=== PATIENT | male | born 1950 | race Caucasian/White ===

== ENCOUNTER 2017-07-30 05:39 | Inpatient (IN) ==
[2017-07-30] MEDS ORDERED: VANCOMYCIN INJ 1,000 MG in SODIUM CHLORIDE 0.9% 250 ML IV ONE (06:00)
[2017-07-30] MEDS ORDERED: SODIUM CHLORIDE 0.9% IV ONE (06:00)
[2017-07-30] MEDS ORDERED: VANCOMYCIN 1,000 MG VIAL ONE (06:00)
[2017-07-30] MEDS ORDERED: CEFAZOLIN IV ONE (06:00)
[2017-07-30] MEDS ORDERED: ceFAZolin 1,000 MG VIAL ONE (06:01)
[2017-07-30] MEDS ORDERED: FAMOTIDINE 20 MG TABLET PO ONE (06:02)
[2017-07-30] MEDS ORDERED: DIAZEPAM 5 MG TABLET PO ONE (06:02)
[2017-07-30] MEDS ORDERED: FAMOTIDINE 20 MG TABLET ONE (06:22)
[2017-07-30] MEDS ORDERED: DIAZEPAM 5 MG TABLET ONE (06:22)
[2017-07-30] MEDS: LACTATED RINGERS 1,000 ML IV SCH ×3 (06:29→22:33)
[2017-07-30] MEDS ORDERED: TRANEXAMIC ACID 1,000 MG/10 ML VIAL IV ONE ×2 (06:38→06:45)
[2017-07-30] MEDS ORDERED: BACITRACIN OINT 0.9 GM PACK TOP ONE (06:38)
[2017-07-30] MEDS ORDERED: PROPOFOL 1,000 MG/100 ML BOTTLE IV ONE (06:43)
[2017-07-30] MEDS ORDERED: ONDANSETRON 4 MG/2 ML VIAL IV PRN (09:23)
[2017-07-30] MEDS ORDERED: diphenhydrAMINE CAP 25 MG CAPSULE PO PRN (09:23)
[2017-07-30] MEDS ORDERED: oxyCODONE IR 5 MG TABLET PO PRN (09:23)
[2017-07-30] MEDS ORDERED: ROPIVACAINE 0.5% 30 ML VIAL ONE (09:31)
[2017-07-30] MEDS ORDERED: EPINEPHrine 1 MG/ML VIAL ONE (09:42)
[2017-07-30] MEDS ORDERED: ACETAMINOPHEN 1,000 MG/100 ML VIAL IV ONE (09:42)
[2017-07-30] MEDS ORDERED: MIDAZOLAM 2 MG/2 ML VIAL ONE ×2 (09:42→12:35)
[2017-07-30] MEDS ORDERED: fentaNYL 100 MCG/2 ML VIAL ONE (09:42)
[2017-07-30] MEDS ORDERED: SODIUM CHLORIDE 0.9% 100 ML IV ONE (09:43)
[2017-07-30] MEDS ORDERED: LACTATED RINGERS 1,000 ML IV ONE (09:43)
[2017-07-30] MEDS ORDERED: KETAMINE 500 MG/10 ML VIAL ONE (09:45)
[2017-07-30] MEDS: KETOROLAC 30 MG/1 ML VIAL IV SCH ×3 (10:47→21:15)
[2017-07-30 12:14] LABS: Basophils % 0.3 % (0.0-0.8); Eosinophils # 0.2 10*3/uL (0.0-0.87); Eosinophils % 1.2 % (0.00-10.9); Hematocrit 39.1 VOL% (42.0-52.0); Hemoglobin 13.4 GM/DL (14.0-18.0); Immature Granulocytes % 1.5 %; Immature Granulocytes Absolute 0.22 #; Lymphocytes # 1.9 10*3/uL (1.4-4.0); Lymphocytes % 12.9 % (21.2-54.2); Mean Corpuscular HGB Conc 34.3 GM/DL (32-36); Mean Corpuscular Hemoglobin 33 PG (27-34); Mean Corpuscular Volume 95.6 FL (87-102); Mean Platelet Volume 9.1 FL (9.6-12.0); Monocytes # 1.1 10*3/uL (0.11-0.8); Monocytes % 7.9 % (1.7-12.7); Neutrophils # 10.9 10*3/uL (1.4-7.4); Neutrophils % 76.2 % (38.7-73.9); Platelet Count 302 T/CUMM (130-400); Red Blood Count 4.09 MC/CUMM (3.8-5.5); Red Cell Distribution Width 12.6 % (9.3-17.3); White Blood Count 14.3 T/CUMM (4-12)
[2017-07-30 12:50] LABS: Calcium 8.7 MG/DL (8.5-10.1); Osmolality,Calculated 284.1 MOS/KG (273-304); Potassium 4.1 MMOL/L (3.5-5.1)
[2017-07-30] MEDS: ceFAZolin 2,000 MG in PREMIX 1 EACH IV SCH ×2 (13:27→20:25)
[2017-07-30] MEDS: ACETAMINOPHEN 500 MG TABLET PO SCH ×2 (13:27→20:25)
[2017-07-30] MEDS: oxyCODONE IR 5 MG TABLET PO PRN (13:49)
[2017-07-30] MEDS: MORPHINE 10 MG/1 ML VIAL IV PRN ×3 (15:12→23:06)
[2017-07-30] MEDS: DOCUSATE SODIUM 100 MG CAPSULE PO SCH (20:25)
[2017-07-31] MEDS: LACTATED RINGERS 1,000 ML IV SCH ×2 (00:34→05:54)
[2017-07-31] MEDS: ACETAMINOPHEN 500 MG TABLET PO SCH ×2 (00:34→09:19)
[2017-07-31] MEDS: KETOROLAC 30 MG/1 ML VIAL IV SCH (03:42)
[2017-07-31] MEDS ORDERED: KETOROLAC 30 MG/1 ML VIAL ONE (05:37)
[2017-07-31] MEDS: MORPHINE 10 MG/1 ML VIAL IV PRN ×5 (05:54→19:32)
[2017-07-31] MEDS: FONDAPARINUX 2.5 MG/0.5 ML SYRINGE SUBCUT SCH (05:54)
[2017-07-31 06:33] LABS: Basophils % 0.3 % (0.0-0.8); Eosinophils # 0.2 10*3/uL (0.0-0.87); Eosinophils % 1.5 % (0.00-10.9); Hematocrit 33.7 VOL% (42.0-52.0); Hemoglobin 11.9 GM/DL (14.0-18.0); Immature Granulocytes % 0.5 %; Immature Granulocytes Absolute 0.05 #; Lymphocytes % 9.1 % (21.2-54.2); Mean Corpuscular HGB Conc 35.3 GM/DL (32-36); Mean Corpuscular Hemoglobin 33 PG (27-34); Mean Corpuscular Volume 93.4 FL (87-102); Mean Platelet Volume 9.3 FL (9.6-12.0); Monocytes # 1.3 10*3/uL (0.11-0.8); Monocytes % 12.7 % (1.7-12.7); Neutrophils % 75.9 % (38.7-73.9); Platelet Count 257 T/CUMM (130-400); Red Blood Count 3.61 MC/CUMM (3.8-5.5); Red Cell Distribution Width 12.5 % (9.3-17.3); White Blood Count 10.5 T/CUMM (4-12)
[2017-07-31 06:46] LABS: Calcium 8.2 MG/DL (8.5-10.1); Osmolality,Calculated 286.1 MOS/KG (273-304); Potassium 3.8 MMOL/L (3.5-5.1)
[2017-07-31] MEDS: MULTIVITAMIN (CENTRUM) TABLET PO SCH (09:12)
[2017-07-31] MEDS: CYANOCOBALAMIN 100 MCG TABLET PO SCH (09:12)
[2017-07-31] MEDS: CHOLECALCIFEROL 1,000 UNIT TABLET PO SCH (09:12)
[2017-07-31] MEDS: IRBESARTAN 150 MG TABLET PO SCH (09:13)
[2017-07-31] MEDS: DOCUSATE SODIUM 100 MG CAPSULE PO SCH ×2 (09:13→20:01)
[2017-07-31] MEDS: FAMOTIDINE 20 MG TABLET PO SCH (09:13)
[2017-07-31] MEDS: CHLORTHALIDONE 25 MG TABLET PO SCH (09:13)
[2017-07-31] MEDS: TAMSULOSIN 0.4 MG CAPSULE PO SCH (09:13)
[2017-07-31] MEDS: COENZYME Q10 100 MG CAPSULE PO SCH (09:13)
[2017-07-31] MEDS: oxyCODONE IR 5 MG TABLET PO PRN (15:15)
[2017-07-31] MEDS: POLYETHYLENE GLYCOL POWDER 17 GM PACK PO SCH (15:21)
[2017-07-31] MEDS: CELECOXIB 200 MG CAPSULE PO SCH (17:50)
[2017-07-31] MEDS: MAGNESIUM HYDROXIDE SUSP 30 ML UDCUP PO PRN (19:57)
[2017-07-31] MEDS: ZALEPLON 5 MG CAPSULE PO PRN (22:09)
[2017-08-01] MEDS: oxyCODONE IR 5 MG TABLET PO PRN ×2 (02:07→07:40)
[2017-08-01 07:22] LABS: Basophils # 0.1 10*3/uL (0.0-0.2); Basophils % 0.4 % (0.0-0.8); Eosinophils # 0.5 10*3/uL (0.0-0.87); Eosinophils % 3.9 % (0.00-10.9); Hematocrit 30.8 VOL% (42.0-52.0); Hemoglobin 10.8 GM/DL (14.0-18.0); Immature Granulocytes % 0.4 %; Immature Granulocytes Absolute 0.05 #; Lymphocytes % 8.3 % (21.2-54.2); Mean Corpuscular HGB Conc 35.1 GM/DL (32-36); Mean Corpuscular Hemoglobin 33 PG (27-34); Mean Corpuscular Volume 94.2 FL (87-102); Mean Platelet Volume 9.6 FL (9.6-12.0); Monocytes # 1.2 10*3/uL (0.11-0.8); Monocytes % 9.7 % (1.7-12.7); Neutrophils # 9.4 10*3/uL (1.4-7.4); Neutrophils % 77.3 % (38.7-73.9); Platelet Count 225 T/CUMM (130-400); Red Blood Count 3.27 MC/CUMM (3.8-5.5); Red Cell Distribution Width 12.5 % (9.3-17.3); White Blood Count 12.2 T/CUMM (4-12)
[2017-08-01] MEDS: FONDAPARINUX 2.5 MG/0.5 ML SYRINGE SUBCUT SCH (07:40)
[2017-08-01] MEDS: DOCUSATE SODIUM 100 MG CAPSULE PO SCH ×2 (11:53→20:26)
[2017-08-01] MEDS: CELECOXIB 200 MG CAPSULE PO SCH (11:53)
[2017-08-01] MEDS: TAMSULOSIN 0.4 MG CAPSULE PO SCH (11:53)
[2017-08-01] MEDS: MULTIVITAMIN (CENTRUM) TABLET PO SCH (11:53)
[2017-08-01] MEDS: CHOLECALCIFEROL 1,000 UNIT TABLET PO SCH (11:53)
[2017-08-01] MEDS: COENZYME Q10 100 MG CAPSULE PO SCH (11:53)
[2017-08-01] MEDS: CHLORTHALIDONE 25 MG TABLET PO SCH (11:53)
[2017-08-01] MEDS: CYANOCOBALAMIN 100 MCG TABLET PO SCH (11:53)
[2017-08-01] MEDS: FAMOTIDINE 20 MG TABLET PO SCH (11:53)
[2017-08-01] MEDS: IRBESARTAN 150 MG TABLET PO SCH (11:53)
[2017-08-01] MEDS: MAGNESIUM HYDROXIDE SUSP 30 ML UDCUP PO PRN (12:10)
[2017-08-01] MEDS: POLYETHYLENE GLYCOL POWDER 17 GM PACK PO SCH (13:42)
[2017-08-01] MEDS: ZALEPLON 5 MG CAPSULE PO PRN (21:57)
[2017-08-02] MEDS: FONDAPARINUX 2.5 MG/0.5 ML SYRINGE SUBCUT SCH (05:17)
[2017-08-02] MEDS: MULTIVITAMIN (CENTRUM) TABLET PO SCH (10:04)
[2017-08-02] MEDS: DOCUSATE SODIUM 100 MG CAPSULE PO SCH (10:04)
[2017-08-02] MEDS: TAMSULOSIN 0.4 MG CAPSULE PO SCH (10:05)
[2017-08-02] MEDS: CHOLECALCIFEROL 1,000 UNIT TABLET PO SCH (10:05)
[2017-08-02] MEDS: CHLORTHALIDONE 25 MG TABLET PO SCH (10:05)
[2017-08-02] MEDS: CYANOCOBALAMIN 100 MCG TABLET PO SCH (10:06)
[2017-08-02] MEDS: IRBESARTAN 150 MG TABLET PO SCH (10:06)
[2017-08-02] MEDS: CELECOXIB 200 MG CAPSULE PO SCH (10:06)
[2017-08-02] MEDS: FAMOTIDINE 20 MG TABLET PO SCH (10:07)
[2017-08-02] MEDS: POLYETHYLENE GLYCOL POWDER 17 GM PACK PO SCH (10:09)
[2017-08-02 12:14] VITALS: BP 131/64
== END 2017-08-02 12:19 | disposition home health service (06) | DRG 462 ==
LOC: N.SDSINP 05:39 → N.3E 10:22
PROVIDERS: ADMIT Orthopaedic Surgery; ATTEND Orthopaedic Surgery